=== PATIENT | female | born 1960 | race Caucasian/White ===

== ENCOUNTER 2018-08-28 14:01 | Emergency (ER) | payer OTHER ==
--- NOTE | 2018-08-28 14:23 | ED Physician Documentation ---
Skin Rash - HISTORIAN Historian: patient - HPI Stated Complaint: poison gracie Chief Complaint: Skin Rash Additional Information: Patient presents to ED with rash to arms/legs/face after working in the yard 2 days ago. Patient reports having contact with poison gracie. Onset: days ago (2) Timing: worse Duration: persistent since Location: generalized Quality: itchy Where: home Context: Medication Exposure: none Context: Other Exposure: poison gracie - ROS CONST: none CVS/RESP: none EYES/ENT: none GI/: none MS/SKIN/LYMPH: none NEURO/PSYCH: none - PAST HX Past History: none Other History: allergy to poison gracie Allergies/Adverse Reactions: Allergies Allergy/AdvReac Type Severity Reaction Status Date / Time No Known Allergies Allergy Verified 08/29/13 11:54 Home Medications: Ambulatory Orders Medication Instructions Recorded predniSONE [Deltasone] 20 mg PO DIRECTED #9 tablet 08/28/18 - SOCIAL HX Smoking History: non-smoker Alcohol Use: none Drug Use: none - FAMILY HX Family History: none - VITAL SIGNS Vital Signs: Vital Signs Temp Pulse Resp BP Pulse Ox 165/94 08/29/13 12:24 - REVIEWED ASSESSMENTS Nursing Assessment Reviewed: Yes Vitals Reviewed: Yes ED Results Lab/Radiology - Orders Orders: ED Orders Category Date Time Status methylPREDNISolone SOD SUCC [SOLU-Medrol] Med 08/28/18 14:16 Once 125 mg IM NOW ONE Skin Rash Physical Exam - EXAM General Appearance: no acute distress, alert Skin: warm,dry, skin rash, erythema Location: generalized Character: asymmetric, patchy, erythematous Symptoms: warmth, swelling Extremities: non-tender EENT: eyes nml inspection Neck: trachea midline, no swelling Respiratory: no resp distress, chest non-tender, breath sounds normal CVS: reg. rate & rhythm, heart sounds nml, murmur Abdomen: non-tender, nml bowel sounds Neuro/Psych: oriented x3, motor nml, mood/affect nml Discharge Clincal Impression: Poison gracie dermatitis Prescriptions: predniSONE [Deltasone] 20 mg PO DIRECTED #9 tablet Referrals: Fan Jorge MD [Primary Care Provider] - 2 Days Additional Instructions: 1. Take Prednisone as directed 2. Apply topical Benedryl, hydrocortisone cream/ointment and calamine lotion as needed for comfort 3. Gracie Block and Gracie wash could be beneficial in the future to prevent rash 4. In future wash with Che dishwashing liquid with wash cloth or exfolliating sponge after exposure to poison gracie 5. Follow up with PCP within 1 week 6. Return to ER for new or worsening symptoms Condition: Stable Disposition: 01 HOME, SELF-CARE Decision to Admit: NO Date of Decison to Admit: 08/28/18 Decision Time: 14:26
[2018-08-28 14:26] VITALS: BP 140/66
[2018-08-28] MEDS: methylPREDNISolone SOD SUCC 125 MG/2 ML VIAL IM ONE (14:27)
== END 2018-08-28 14:34 | disposition home or self-care (01) ==
LOC: ED 14:01
DX: L23.7 Allergic contact dermatitis due to plants, except food (principal)
CPT/HCPCS: 96372; 99283; J2930

== ENCOUNTER 2018-11-30 08:36 | Outpatient (CLI) | payer OTHER ==
--- NOTE | 2018-11-30 09:56 | Diagnostic Imaging Report ---
BRETT BRITO [facility] [id number] [facility].[address] [id number] Report Submission Date: Nov 30, 2018 9:28:39 AM CDT Patient Study Name: STEVO ROSADO Date: Nov 30, 2018 8:36:23 AM CDT Modality Type: DX Gender: F Description: FOOT 3 VIEWS OR MORE : 60 Institution: [facility] Physician: BRETT BRITO Examination: Plain film left foot History: LEFT FOOT, PAIN FOR A FEW WEEKS, PT STATES KNOT ON SIDE OF FOOT Findings: 3 views of the left foot demonstrates articular degenerative changes. No fracture or dislocation. Calcaneal spurs. No soft tissue swelling. No joint effusion. Impression: Degenerative changes. No acute appearing cortical abnormality. Electronically signed on Nov 30, 2018 9:28:39 AM CDT by: Fabian EASTON
== END 2018-11-30 08:38 ==
LOC: RAD 08:36
PROVIDERS: ATTEND Family Medicine
DX: M21.612 Bunion of left foot (principal)
CPT/HCPCS: 73630